=== PATIENT | male | born 1985 | race African-American/Black ===

== ENCOUNTER 2020-10-25 19:55 | Emergency (ER) | payer OTHER ==
[2020-10-25 20:01] VITALS: BP 110/76; PULSE 96; TEMP 98; BMI 23.6
[2020-10-25] MEDS ORDERED: SODIUM CHLORIDE 0.9% 500 ML INFUS.BAG IV ONE (20:31)
[2020-10-25] MEDS ORDERED: MAG HYDROX/AL HYDROX/SIMETH 30 ML UNIT-DOSE CUP PO ONE (20:31)
[2020-10-25] MEDS ORDERED: MAG HYDROX/AL HYDROX/SIMETH 30 ML UNIT-DOSE CUP ONE (20:33)
[2020-10-25 21:03] LABS: BASO % 0.4 % (0-2.0); EOS % 0.3 % (0-4.5); HEMOGLOBIN 16.1 GM/dL (11.7-16.9); LYMPH % 4.6 % (8-40); MCH 28.3 pg (25.7-33.7); MCHC 33.5 g/dl (32.0-35.9); MEAN CELL VOLUME 84.4 fl (80-96); MONO % 5.4 % (3.8-10.2); NEUT % 89.3 % (42.8-82.8); PLATELET COUNT 418 10^3/uL (134-434); RBC 5.68 M/mm3 (4.00-5.60); RDW 14.4 % (11.9-15.9); WHITE BLOOD COUNT 13.8 K/mm3 (4.0-10.0)
[2020-10-25 21:30] LABS: CALCIUM 9.3 mg/dL (8.5-10.1)
[2020-10-25 21:31] LABS: ALBUMIN 3.9 g/dl (3.4-5.0); BLOOD UREA NITROGEN 13.1 mg/dL (7-18)
[2020-10-25 21:34] LABS: CREATININE 1.2 mg/dL (0.55-1.3)
[2020-10-25 21:35] LABS: BILIRUBIN,TOTAL 0.8 mg/dL (0.2-1)
[2020-10-25 21:36] LABS: TOT PROT 8.1 g/dl (6.4-8.2)
== END 2020-10-25 22:14 | disposition home or self-care (01) ==
LOC: JER 19:55
DX: R11.2 Nausea with vomiting, unspecified (principal); R19.7 Diarrhea, unspecified
CPT/HCPCS: 36415; 80053; 83690; 85025; 99283-25

== ENCOUNTER 2022-01-03 15:13 | Emergency (ER) | payer OTHER ==
[2022-01-03 15:35] VITALS: BMI 24.8
[2022-01-03 17:29] LABS: BASO % 0.6 % (0-2.0); EOS % 0.8 % (0-4.5); HEMATOCRIT 44.7 % (35.4-49); HEMOGLOBIN 14.9 GM/dL (11.7-16.9); MCH 28.4 pg (25.7-33.7); MCHC 33.4 g/dl (32.0-35.9); MEAN CELL VOLUME 85.1 fl (80-96); MEAN PLT VOLUME 7.3 fl (7.5-11.1); MONO % 3.9 % (3.8-10.2); NEUT % 86.7 % (42.8-82.8); PLATELET COUNT 367 10^3/uL (134-434); RBC 5.26 M/mm3 (4.00-5.60); RDW 14.6 % (11.9-15.9); WHITE BLOOD COUNT 12.6 K/mm3 (4.0-10.0)
[2022-01-03 17:50] LABS: BLOOD UREA NITROGEN 18.3 mg/dL (7-18); CALCIUM 9.5 mg/dL (8.5-10.1)
[2022-01-03 17:51] LABS: ALBUMIN 3.7 g/dl (3.4-5.0)
[2022-01-03 17:54] LABS: CREATININE 1.3 mg/dL (0.55-1.3)
[2022-01-03 17:55] LABS: BILIRUBIN,TOTAL 0.4 mg/dL (0.2-1)
[2022-01-03 18:34] VITALS: BP 111/76; PULSE 82; RESP 16; TEMP 98.2
== END 2022-01-03 19:10 | disposition home or self-care (01) ==
LOC: JER 15:13
DX: R00.2 Palpitations (principal)
CPT/HCPCS: 36415; 80053; 83735; 84439; 84443; 84484; 85025; 93005; 93010; 99284-25; C9803-CS; U0003; U0005